=== PATIENT | male | born 1970 | race Caucasian/White ===

== ENCOUNTER 2016-11-03 11:45 | Observation (INO) | payer SELFPAY ==
[~2016-11-03] VITALS: Ht 188 cm; Wt 82.0 kg
[~2016-11-03 11:45] MED LIST: IBUP800T23 PO
[2016-11-03 11:57] VITALS: BP 133/69; PULSE 74; RESP 16; TEMP 98.1; O2SAT 98
--- NOTE | 2016-11-03 11:57 | PD ---
HPI . Chest tightness Chief Complaint: Chest Pain Time Seen by Provider: 11:57 Travel History International Travel<30 days: No Contact w/Intl Traveler<30days: No Traveled to known affect area: No History of Present Illness HPI 46-year-old male with no significant past medical history other than tobaccoism for 30 years here with complaints of chest tightness. Patient without cutting grass when he felt a tight sensation under his left axilla, eventually that subsided and the pain moved into his sternum. He describes the pain as a chest tightness and rates it as a 5 out of 10 on the pain scale. He admits to some shortness of breath and dizziness during the episode. At this present moment he only reports some mild chest tightness. He admits to smoking for over 30 years pack per day and tells me that he coughs every morning. He denies any fever or chills, however tells me that occasionally he experiences night sweats. He was brought in by EMS and vital signs were stable, EKG was unremarkable. He was given two baby asa and nitro prior to arrival. EKG here in the emergency department was also unremarkable. At the time of examination patient is hemodynamically stable and in no signs of distress. Pertinent family history his father had a heart attack at age 65. PFSH Past Medical History Atrial Fibrillation: Yes Anxiety: Yes Heart Rhythm Problems: Yes Cardiac Catheterization: No Cardiovascular Problems: Yes (HAD AN IRREGULAR HEART BEAT AFTER CUNSUMPTION OF CAFFINE, NO C/O SINCE.) Congestive Heart Failure: No Diabetes: No Diminished Hearing: No Hypertension: No Immunizations Current: No Past Surgical History Coronary Artery Bypass Graft: No Oral Surgery: Yes (wisdom tooth) Thoracic Surgery: Yes (CYST REMOVED FROM RIGHT LUNG, LUNG COLLAPSED, HAD CHEST TUBE.) Social History Alcohol Use: No Tobacco Use: Yes (1 PPD) Substance Use: No Allergies-Medications (Allergen,Severity, Reaction): Coded Allergies: No Known Allergies (Verified , 11/03/16) Reported Meds & Prescriptions Reported Meds & Active Scripts Active No Active Prescriptions or Reported Medications Review of Systems General / Constitutional: No: Fever Eyes: No: Visual changes HENT: No: Headaches Cardiovascular: Positive: Chest Pain or Discomfort, No: Irregular Rhythm, Tachycardia, Syncope, Dyspnea on exertion Respiratory: Positive: Shortness of Breath Gastrointestinal: No: Abdominal Pain Genitourinary: No: Dysuria Musculoskeletal: No: Pain Skin: No Rash Neurologic: Positive: Dizziness, No: Weakness Psychiatric: No: Depression Endocrine: No: Polydipsia Hematologic/Lymphatic: No: Easy Bruising Physical Exam Narrative GENERAL: AAO x 3, no acute distress, Well-nourished, well-developed patient. SKIN: Warm and dry. No visible rashes or bruising. HEAD: Normocephalic and atraumatic. EYES: No scleral icterus. No injection or drainage. EOM intact, PERRLA ENT: No nasal drainage noted. Mucous membranes pink. Airway patent. Moist mucous membranes. NECK: Supple, trachea midline. No JVD. CARDIOVASCULAR: Regular rate and rhythm without murmurs, gallops, or rubs. Chest pain not reproducible with palpation. RESPIRATORY: Breath sounds diminished bilaterally.. No accessory muscle use. Slight rhonchi on the left lower side GASTROINTESTINAL: Abdomen soft, non-tender, nondistended. EXTREMITIES: No cyanosis or edema. BACK: Nontender without obvious deformity. No CVA tenderness. 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 Data Data Last Documented VS Vital Signs Date Time Temp Pulse Resp B/P Pulse Ox O2 Delivery O2 Flow Rate FiO2 11/03/16 11:59 97 Room Air 11/03/16 11:57 98.1 74 16 133/69 Orders Electrocardiogram (11/03/16 11:57) Basic Metabolic Panel (Bmp) (11/03/16 11:57) B-Type Natriuretic Peptide (11/03/16 11:57) Ckmb (Isoenzyme) Profile (11/03/16 11:57) Complete Blood Count With Diff (11/03/16 11:57) Magnesium (Mg) (11/03/16 11:57) Prothrombin Time / Inr (Pt) (11/03/16 11:57) Act Partial Throm Time (Ptt) (11/03/16 11:57) Troponin I (11/03/16 11:57) Chest, Single Ap (11/03/16 11:57) Ecg Monitoring (11/03/16 11:57) Bilateral Bp Monitoring (11/03/16 11:57) Iv Access Insert/Monitor (11/03/16 11:57) Oximetry (11/03/16 11:57) Oxygen Administration (11/03/16 11:57) Sodium Chloride 0.9% Flush (Ns Flush) (11/03/16 12:00) Activity Bed Rest With Brp (11/03/16 13:15) Vital Signs (Adult) Q4H (11/03/16 13:15) Cardiac Rhythm .As Directed (11/03/16 13:15) Notify Dr: Other .PRN (11/03/16 13:15) Notify DrEmerita Parameters (11/03/16 13:15) Resp Oxygen Nasal Cannula (11/03/16 ) Ckmb (Isoenzyme) Profile (11/03/16 13:15) Ckmb (Isoenzyme) Profile (11/03/16 16:15) Troponin I (11/03/16 13:15) Troponin I (11/03/16 16:15) Electrocardiogram (11/03/16 13:15) Electrocardiogram (11/03/16 16:15) ^ Obtain (11/03/16 13:15) Sodium Chloride 0.9% Flush (Ns Flush) (11/03/16 13:15) Sodium Chloride 0.9% Flush (Ns Flush) (11/03/16 21:00) Program Consultant / Telemetry [id number].[id number] (11/03/16 13:15) Admit Order (Ed Use Only) (11/03/16 13:15) Labs Laboratory Tests Test 11/03/16 12:03 White Blood Count 5.5 TH/MM3 Red Blood Count 4.50 MIL/MM3 Hemoglobin 14.0 GM/DL Hematocrit 42.3 % Mean Corpuscular Volume 94.1 FL Mean Corpuscular Hemoglobin 31.2 PG Mean Corpuscular Hemoglobin 33.2 % Concent Red Cell Distribution Width 12.9 % Platelet Count 213 TH/MM3 Mean Platelet Volume 7.5 FL Neutrophils (%) (Auto) 63.2 % Lymphocytes (%) (Auto) 24.4 % Monocytes (%) (Auto) 9.6 % Eosinophils (%) (Auto) 1.7 % Basophils (%) (Auto) 1.1 % Neutrophils # (Auto) 3.5 TH/MM3 Lymphocytes # (Auto) 1.3 TH/MM3 Monocytes # (Auto) 0.5 TH/MM3 Eosinophils # (Auto) 0.1 TH/MM3 Basophils # (Auto) 0.1 TH/MM3 CBC Comment DIFF FINAL Differential Comment Prothrombin Time 10.7 SEC Prothromb Time International 1.0 RATIO Ratio Activated Partial 26.2 SEC Thromboplast Time Sodium Level 138 MEQ/L Potassium Level 3.4 MEQ/L Chloride Level 105 MEQ/L Carbon Dioxide Level 23.8 MEQ/L Anion Gap 9 MEQ/L Blood Urea Nitrogen 7 MG/DL Creatinine 0.81 MG/DL Estimat Glomerular Filtration 103 ML/MIN Rate Random Glucose 131 MG/DL Calcium Level 8.3 MG/DL Magnesium Level 1.9 MG/DL Total Creatine Kinase 82 U/L Troponin I LESS THAN 0.02 NG/ML B-Type Natriuretic Peptide 17 PG/ML MDM Medical Decision Making Medical Screen Exam Complete: Yes Emergency Medical Condition: Yes Medical Record Reviewed: Yes Differential Diagnosis Chest pain, atypical chest pain, ACS, angina, pericarditis, GERD, COPD Narrative Course 46-year-old male here with complaints of chest tightness. IV access was obtained, patient was placed on continuous heart monitoring as well as oxygen monitoring. Labs and imaging have been ordered. Patient reassessed and is comfortable. Last Impressions Chest X-Ray 11/03/16 1157 Signed Impressions: Service Date/Time: Thursday, November 03, 2016 11:55 - CONCLUSION: Asymmetrical apical pleural thickening on the right. Yoan Chawla MD FACR Laboratory Tests Test 11/03/16 12:03 White Blood Count 5.5 TH/MM3 Red Blood Count 4.50 MIL/MM3 Hemoglobin 14.0 GM/DL Hematocrit 42.3 % Mean Corpuscular Volume 94.1 FL Mean Corpuscular Hemoglobin 31.2 PG Mean Corpuscular Hemoglobin 33.2 % Concent Red Cell Distribution Width 12.9 % Platelet Count 213 TH/MM3 Mean Platelet Volume 7.5 FL Neutrophils (%) (Auto) 63.2 % Lymphocytes (%) (Auto) 24.4 % Monocytes (%) (Auto) 9.6 % Eosinophils (%) (Auto) 1.7 % Basophils (%) (Auto) 1.1 % Neutrophils # (Auto) 3.5 TH/MM3 Lymphocytes # (Auto) 1.3 TH/MM3 Monocytes # (Auto) 0.5 TH/MM3 Eosinophils # (Auto) 0.1 TH/MM3 Basophils # (Auto) 0.1 TH/MM3 CBC Comment DIFF FINAL Differential Comment Prothrombin Time 10.7 SEC Prothromb Time International 1.0 RATIO Ratio Activated Partial 26.2 SEC Thromboplast Time Sodium Level 138 MEQ/L Potassium Level 3.4 MEQ/L Chloride Level 105 MEQ/L Carbon Dioxide Level 23.8 MEQ/L Anion Gap 9 MEQ/L Blood Urea Nitrogen 7 MG/DL Creatinine 0.81 MG/DL Estimat Glomerular Filtration 103 ML/MIN Rate Random Glucose 131 MG/DL Calcium Level 8.3 MG/DL Magnesium Level 1.9 MG/DL Total Creatine Kinase 82 U/L Troponin I LESS THAN 0.02 NG/ML B-Type Natriuretic Peptide 17 PG/ML All labs and imaging have been reviewed. Troponin is negative. I recommend admission for overnight observation and the chest pain center. I have discussed with the patient and he is in agreement. I discussed his chest xray with him. Recommend outpatient f/u and smoking cessation. Case discussed with Dr. Cage. 1333: Patient notified nursing staff that he wants to leave against medical advice. I have spoken to him and discussed the risks including OK, sudden etc. Patient choses to leave despite knowing the risks. Diagnosis Primary Impression: CHEST PAIN ON BREATHING Admitting Information Admitting Physician Requests: Admit Scripts No Active Prescriptions or Reported Meds Condition: Stable Mel Quintana Nov 03, 2016 11:57
[2016-11-03 11:59] VITALS: O2SAT 97
[2016-11-03] MEDS ORDERED: SODIUM CHLORIDE 0.9% FLUSH 10 ML FLUSH IVF PRN (12:00)
--- NOTE | 2016-11-03 12:20 | RADRPT ---
EXAM DATE/TIME: 11/03/2016 11:55 [facility] COMPARISON: CHEST SINGLE AP, August 17, 2014, 11:45. INDICATIONS : Chest pain. MEDICAL HISTORY : None. SURGICAL HISTORY : None. ENCOUNTER: Initial ACUITY: 1 day PAIN SCORE: 5/10 LOCATION: Bilateral chest FINDINGS: There is asymmetrical apical pleural thickening more so on the right than the left. The left lung is clear. The heart and pulmonary vascularity are normal.. The cardiomediastinal contours are unremark able. CONCLUSION: Asymmetrical apical pleural thickening on the right. Yoan Chawla MD FACR on November 03, 2016 at 12:18 Board Certified Radiologist. This report was verified electronically.
[2016-11-03 12:40] LABS: AUTOMATED NEUTROPHIL # 3.5 TH/MM3 (1.8-7.7); BASOPHIL # 0.1 TH/MM3 (0-0.2); BASOPHIL % 1.1 % (0.0-2.0); EOSINOPHIL # 0.1 TH/MM3 (0-0.4); EOSINOPHIL % 1.7 % (0.0-4.0); HEMATOCRIT 42.3 % (39.0-51.0); HEMO FLAGS DIFF FINAL; LYMPH % 24.4 % (9.0-44.0); LYMPHOCYTE # 1.3 TH/MM3 (1.0-4.8); MEAN CELL VOLUME 94.1 FL (80.0-100.0); MEAN CORPUSCULAR HEMOGLOBIN 31.2 PG (27.0-34.0); MEAN CORPUSCULAR HGB CONC 33.2 % (32.0-36.0); MONO % 9.6 % (0.0-8.0); NEUT % 63.2 % (16.0-70.0); PLATELET COUNT 213 TH/MM3 (150-450); RED CELL DISTRIBUTION WIDTH 12.9 % (11.6-17.2); WHITE BLOOD COUNT 5.5 TH/MM3 (4.0-11.0)
[2016-11-03 12:48] LABS: APTT (PATIENT) 26.2 SEC (24.3-30.1); PROTHROMBIN TIME - PATIENT 10.7 SEC (9.8-11.6)
[2016-11-03 12:58] LABS: ANION GAP 9 MEQ/L (5-15); BICARBONATE 23.8 MEQ/L (21.0-32.0); BLOOD UREA NITROGEN 7 MG/DL (7-18); CHLORIDE 105 MEQ/L (98-107); GLOMERULAR FILTRATION RATE 103 ML/MIN (>89); MAGNESIUM 1.9 MG/DL (1.5-2.5); POTASSIUM 3.4 MEQ/L (3.5-5.1); SODIUM (NA) 138 MEQ/L (136-145)
[2016-11-03 13:11] LABS: CREATINE KINASE 82 U/L (39-308)
[2016-11-03] MEDS ORDERED: SODIUM CHLORIDE 0.9% FLUSH 10 ML FLUSH IV FLUSH PRN (13:15)
[2016-11-03 13:36] VITALS: BP 129/64; PULSE 84; RESP 19; O2SAT 98
[2016-11-03] MEDS ORDERED: SODIUM CHLORIDE 0.9% FLUSH 10 ML FLUSH IV FLUSH SCH (21:00)
--- NOTE | 2016-11-04 16:59 | EKG ---
Date Performed: 11/03/2016 Time Performed: 11:54:59 PTAGE: 46 years EKG: Sinus rhythm NORMAL ECG Compared to the PREVIOUS TRACING from 08/17/14, no significant change DOCTOR: Elijah Millan Interpretating Date/Time 11/04/2016 16:58:18
== END 2016-11-03 13:38 | disposition left against medical advice (07) ==
LOC: NEPE 11:45 → NEDA 13:18
PROVIDERS: ADMIT Internal Medicine Interventional Cardiology; ATTEND Internal Medicine Interventional Cardiology
DX: R07.1 Chest pain on breathing (principal); R06.02 Shortness of breath; R42 Dizziness and giddiness; R05 Cough; R91.8 Other nonspecific abnormal finding of lung field; F41.9 Anxiety disorder, unspecified; Z82.49 Family history of ischemic heart disease and other diseases of the circulatory system; F17.200 Nicotine dependence, unspecified, uncomplicated; Z53.21 Procedure and treatment not carried out due to patient leaving prior to being seen by health care provider
CPT/HCPCS: 71010; 80048; 82550; 83735; 83880; 84484; 85025; 85610; 85730; 93005; 99285; G0378